=== PATIENT | male | born 1960 | race Caucasian/White ===

== ENCOUNTER 2018-11-27 14:48 | Emergency (ER) | payer BC, OTHER ==
[~2018-11-27] VITALS: Ht 190.5 cm; Wt 75.7 kg
--- NOTE | 2018-11-27 14:48 | NUR ---
PT ARRIVED TO ED REGISTRATION REPORTING NUMBNESS IN LEFT FOOT. PT HAS DRIVEN SELF AND AMBLATED INTO ED.
--- NOTE | 2018-11-27 15:05 | NUR ---
PT BROUGHT TO ED 4 FOR ASSESSMENT. PT REFUSES W/C. PT APPEARS TO HAVE SOME DISCOMFORT IN LEFT LOWER EXTREMITY WITH AMBULATION. PT REPORTS THE PAIN AND STIFFNESS THAT HE CAN NOT FLEX OR ROTATE ANKLE/FOOT SINCE THIS BEGAN 1100 POST MOWING THE YARD. SEE TRIAGE ASSESSMENT.
--- NOTE | 2018-11-27 15:20 | NUR ---
RN HAS USED BEDSIDE DOPPLER TO TRY TO OBTAIN THE LEFT DORSALIS PEDIS AND POSTERIOR TIBIAL PULSE, NO PULSE COULD BE HEARD. NURSE CAN PALPATE POPLITEAL PULSE LEFT LEG. THE RIGHT FOOT HAS PALPABLE NEARLY BOUNDING PULSES. DR YUN NOTIFIED.
--- NOTE | 2018-11-27 15:25 | NUR ---
[facility] PERFORMED PER DR YUN.
--- NOTE | 2018-11-27 15:30 | NUR ---
PT'S PULSES CHECKED BY DR YUN, UNABLE TO DOPPLER PULSES. POPLITEAL PULSE PALPATED. THIS OBSERVER NOTES THE PALLOR IN THE SOLE OF FOOT WITH PROLONGED BLANCHING 5 SEC. PT HAS COOLNESS OF LEFT LOWER EXTREMITY. PT HAS GOOD SENSATION TO THE KNEE AND SLIGHTLY BELOW BUT BEGAN NUMBNESS INTO [place].
--- NOTE | 2018-11-27 15:34 | NUR ---
BP CHECK TO LEFT ARM 145/87, BP CHECK TO LEFT ANKLE 78/13.
--- NOTE | 2018-11-27 15:37 | ED General ---
General Stated Complaint: LT LEG NUMBNESS History of Present Illness Date Seen by Provider: Nov 27, 2018 Time Seen by Provider: 15:25 This is a 58-year-old man with a history of peripheral arterial disease status post femoropopliteal bypass in the left lower extremity now coming in with pain and numbness in the foot and proximally to the level of the mid lower leg which started while walking and mowing his lawn at 11 AM today. He does not have weakness, numbness, or tingling anywhere else in his body. No headache or neck pain or back pain. No abdominal pain. No incontinence or retention of urine or stool. Allergies and Home Medications Allergies Coded Allergies: No Known Drug Allergies (Unverified , 11/27/18) Patient Home Medication List Home Medication List Reviewed: Yes Review of Systems Review of Systems Constitutional: no symptoms reported EENTM: no symptoms reported Respiratory: no symptoms reported Cardiovascular: see HPI Gastrointestinal: no symptoms reported Genitourinary: no symptoms reported Musculoskeletal: see HPI Skin: no symptoms reported Psychiatric/Neurological: No Symptoms Reported Hematologic/Lymphatic: No Symptoms Reported Immunological/Allergic: no symptoms reported Past Ggbhtoc-Dqxqpa-Gbqjbz Hx Past Med/Social Hx: Reviewed Nursing Past Med/Soc Hx Physical Exam Vital Signs Vital Signs - First Documented 11/27/18 15:05 Temp 98.8 Pulse 68 Resp 20 B/P (MAP) 145/85 (105) Pulse Ox 100 O2 Delivery Room Air Capillary Refill : Height, Weight, BMI Height: '" Weight: lbs. oz. kg; BMI Method: General Appearance: No Apparent Distress HEENT: PERRL/EOMI, Normal ENT Inspection Neck: Supple Respiratory: Lungs Clear Cardiovascular: Regular Rate, Rhythm, Other (there are palpable pulses in all extremities including a left sided popliteal pulse however there is no left- sided DP or PT pulse palpable or appreciable with Doppler) Gastrointestinal: No Pulsatile Mass, Non Tender, Soft Extremity: Other (skin of the left great toe is faintly pale compared to contralateral side, the skin in all the toes is slightly cool compared to the contralateral side) Neurologic/Psychiatric: Other (mild decrease in sensation in the left lower extremity below about the mid lower leg) Skin: Warm/Dry Progress/Results/Core Measures Suspected Sepsis SIRS Temperature: Pulse: Respiratory Rate: Laboratory Tests 11/27/18 16:00: White Blood Count 9.4 Blood Pressure / Mean: Laboratory Tests 11/27/18 16:00: Creatinine 0.99, INR Comment 1.1, Platelet Count 142 Results/Orders Lab Results Laboratory Tests Test 11/27/18 16:00 Range/Units White Blood Count 9.4 4.3-11.0 10^3/uL Red Blood Count 4.09 L 4.35-5.85 10^6/uL Hemoglobin 14.8 13.3-17.7 G/DL Hematocrit 43 40-54 % Mean Corpuscular Volume 104 H 80-99 FL Mean Corpuscular Hemoglobin 36 H 25-34 PG Mean Corpuscular Hemoglobin Concent 35 32-36 G/DL Red Cell Distribution Width 13.2 10.0-14.5 % Platelet Count 142 130-400 10^3/uL Mean Platelet Volume 9.4 7.4-10.4 FL Prothrombin Time 14.2 12.2-14.7 SEC INR Comment 1.1 0.8-1.4 Activated Partial Thromboplast Time 32 24-35 SEC Sodium Level 137 135-145 MMOL/L Potassium Level 3.6 3.6-5.0 MMOL/L Chloride Level 99 98-107 MMOL/L Carbon Dioxide Level 25 21-32 MMOL/L Anion Gap 13 5-14 MMOL/L Blood Urea Nitrogen 11 7-18 MG/DL Creatinine 0.99 0.60-1.30 MG/DL Estimat Glomerular Filtration Rate > 60 BUN/Creatinine Ratio 11 Glucose Level 112 H 70-105 MG/DL Calcium Level 9.6 8.5-10.1 MG/DL My Orders Orders - KETAN YUN DO Heparin Drip [id number] Unit/500ml (Heparin (11/27/18 15:47) Heparin (Bolus Per Protocol) (Heparin (B (11/27/18 16:00) Cbc No Diff (11/27/18 15:49) Basic Metabolic Panel (11/27/18 15:49) Protime With Inr (11/27/18 15:49) Partial Thromboplastin Time (11/27/18 15:49) Vital Signs/I&O Capillary Refill : Progress Note #1: Progress Note This is a 58-year-old man with a history of peripheral arterial disease status post femoropopliteal bypass in the left lower extremity now coming in with pain and numbness in the foot and proximally to the level of the mid lower leg. We are unable to appreciate pulses and we are unable to obtain a Doppler signal. As documented he does have a popliteal pulse however. He does not have any other neurologic symptoms that would suggest stroke. He has an ankle brachial index of 0.3. Patient is agreeable with and prefers going back to [facility] in [place], the facility where he has had his surgery in the past. At 1538 I contacted that facility to speak with vascular surgery. Progress Note #2: Progress Note I spoke to Dr Gomez from vascular surgery who accepts pt on his service, agrees with heparin drip and no testing in our facility. I will however add labs/ coags while we await transport. I did specifically ask if helicopter transport was recommended given that symptoms began at 11 and we are an hour and a half away but he said ground transport was fine. Pt also had refused helicopter transport anyway. He is aware that with prolonged lack of blood flow he risks losing his leg. Departure Impression Primary Impression: Acute occlusion of artery of lower extremity Disposition: 02 XFER SHT-TRM HOSP Condition: Stable Transfer Time Spoke to Accepting Phy: 15:[address] Gomez, vascular surgery at [facility] Method of Transfer: EMS Departure-Patient Inst. Referrals: NO,LOCAL PHYSICIAN (PCP/Family) Primary Care Physician KETAN YUN DO Nov 27, 2018 15:37
[2018-11-27] MEDS ORDERED: HEParin DRIP 25000 UNIT/500ML 500 ML IV ONE (15:47)
--- NOTE | 2018-11-27 15:50 | NUR ---
DR SPEAKING WITH PT AND PT IS REFUSING AIR TRANSPORT TO [place]. PT HAS BEEN ASKING DR IF HE COULD DRIVE SELF OR YET WAIT TILL TOMORROW. DR EXPLAINED THE RISKS FOR LOSS OF EXTREMITY R/T DELAYED PERFUSION OF CIRCULATION. PT CONSENTS TO TRANSFER FINALLY AFTER [facility]CERN TO WHICH FACILTY WILL BE IN NETWORK PT HAS NOT INVESTIGATED THIS. PT IS AGREEABLE THAT RETURN TO CLOSE FACILITY AND [facility] HAD SURGERY AT, [facility] WAS CONTACTED.
[2018-11-27] MEDS ORDERED: HEParin 1000 UNIT/ML (10ML VIAL) FOR BOLUS IV ONE (16:00)
--- NOTE | 2018-11-27 16:12 | NUR ---
[facility] called to see if they could take transfer and unavailable. [facility] called and unavailbe to take transfer.
--- NOTE | 2018-11-27 16:15 | NUR ---
CONTACT MADE WITH SHIFT CAPTAIN OF [facility] AND PLAN FOR [facility] TO TAKE TRANSPORT SOON BACK IN SERVICE INTO [facility] FROM [place].
[2018-11-27 16:19] LABS: HEMOGLOBIN 14.8 G/DL (13.3-17.7); MEAN PLATELET VOLUME 9.4 FL (7.4-10.4); RED CELL DISTRIBUTION WIDTH 13.2 % (10.0-14.5); WHITE BLOOD COUNT 9.4 10^3/uL (4.3-11.0)
--- NOTE | 2018-11-27 16:35 | NUR ---
EMS ARRIVING, THIS RN ON PHONE CALLING REPORT TO [facility]. PT HAS IV START, LABS DRAWN THAT ARE PENDING AND WILL FAX. HEPARIN BOLUS 5000 UNITS GIVEN 1625 AND HEPARIN DRIP AT 1200 UNITS PER HR = 24 ML/HR STARTED AT 1627. PT HAD TO BE MAX LIMIT ON HEPARIN PROTOCOL CALCULATIONS GREATER THAN THOSE.
[2018-11-27 16:40] VITALS: BP 145/85
--- NOTE | 2018-11-27 16:40 | NUR ---
PT DEPARTING ER AT THIS TIME WITH [facility] GOING CODE RED, EMERGENT. NO CHANGE IN PT CONDITION. PT REMAINS ON HEPARIN DRIP IN ROUTE.
[2018-11-27 16:41] LABS: BUN/CREATININE RATIO 11; CALCIUM 9.6 MG/DL (8.5-10.1); CARBON DIOXIDE 25 MMOL/L (21-32); CHLORIDE 99 MMOL/L (98-107); CREATININE SERUM 0.99 MG/DL (0.60-1.30); GFR ESTIMATED > 60; GLUCOSE 112 MG/DL (70-105); POTASSIUM 3.6 MMOL/L (3.6-5.0); SODIUM 137 MMOL/L (135-145)
[2018-11-27 16:45] LABS: INR 1.1 (0.8-1.4); PROTHROMBIN TIME PATIENT 14.2 SEC (12.2-14.7)
== END 2018-11-27 16:40 | disposition short-term general hospital (02) ==
LOC: ER FS 14:51
DX: I74.3 Embolism and thrombosis of arteries of the lower extremities (principal); Z95.820 Peripheral vascular angioplasty status with implants and grafts
CPT/HCPCS: 36415; 80048; 85027; 85610; 85730